=== PATIENT | male | born 2005 | race Caucasian/White ===

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

== ENCOUNTER 2024-03-15 14:43 | Emergency (ER) | payer BC, OTHER, SELFPAY ==
[2024-03-15 14:50] VITALS: BP 134/82; PULSE 100; RESP 20; TEMP 36.7; O2SAT 99
--- NOTE | 2024-03-15 14:59 | ED.GENADULT ---
HPI - General Adult General Chief complaint: Upper Respiratory Infection Stated complaint: throat/head pressure Source: patient, RN notes reviewed and old records reviewed Mode of arrival: ambulatory Limitations: no limitations History of Present Illness HPI narrative: 18-year-old male to Express Care for complaint of sinus pressure, lack of energy, sore throat, temp up to 99.8 for 2 days. Patient has attempted to treat at home with DayQuil and NyQuil without relief. Patient denies allergies, ear pain, cough, headache, GI symptoms. Patient able to tolerate fluids by mouth. Related Data Home Medications Medication Instructions Recorded Confirmed clonidine HCl 0.1 mg tablet 0.1 mg PO DAILY 03/15/24 03/15/24 clonidine HCl 0.2 mg tablet 0.2 mg PO DAILY 03/15/24 03/15/24 methylphenidate HCl 54 mg 54 mg PO DAILY 03/15/24 03/15/24 tablet,extended release 24 hr sertraline 100 mg tablet 100 mg PO DAILY 03/15/24 03/15/24 Allergies Allergy/AdvReac Type Severity Reaction Status Date / Time No Known Allergies Allergy Verified 03/15/24 15:05 Review of Systems Review of Systems: All systems reviewed & are unremarkable except as noted in HPI and below Constitutional: Constitutional: Reports as per HPI, Reports fatigue and Reports fever(s) Eyes: Eyes: Reports no additional eye complaints ENT: Reports as per HPI, Reports sinus pressure and Reports sore throat Cardiovascular: Cardiovascular: Reports no additional cardiovascular complaints, Denies chest pain and Denies dyspnea Respiratory: Respiratory: Reports no additional respiratory complaints, Denies cough and Denies dyspnea Musculoskeletal: Musculoskeletal: Reports no additional musculoskeletal complaints Neurologic: Reports system reviewed and no additional complaints, except as documented Psychiatric: Psychiatric: Reports no additional psychiatric complaints PMFSH Comments At the time of my signature, I reviewed and agree with the nursing past medical, surgical, social, and family history. There is no relevant family history pertinent to the patient complaint. Exam Const: General: cooperative, no acute distress, alert, tired appearing, uncomfortable, well groomed and well nourished Nutritional Appearance: well nourished Orientation/consciousness: patient oriented x3 Limitations: no limitations HENMT: Head: normal to inspection Ears: external ears normal Face/Nose/Sinus: Normal external nose present, Normal nares present, normal facial exam, No erythema and No edema Face and sinus: normal facial exam, no erythema and no edema Mouth: Yes Normal oral and palatal mucosa present Throat: abnormal tonsil bilateral erythema and hypertrophy 2+ and posterior oropharynx abnormal erythema and exudates Eyes: General: appearance normal, both eyes and all related structures Neck: Neck: normal visual inspection, full ROM and no meningeal signs Lymphatic: no lymphadenopathy noted and no lymphedema noted Chest: Chest palpation & inspection: normal inspection of the chest Resp: Effort & Inspection: normal respiratory effort and able to speak in complete sentences Auscultation: clear to auscultation bilaterally Cardio: Jugular venous distension: no JVD Rate: regular rate Rhythm: regular rhythm Back/Spine/Pelvis: Cervical Spine: cervical ROM normal Skin: General skin exam: normal color, no rashes or lesions noted and turgor normal Neuro: General: patient oriented x3, gait normal, moves all extremities and no meningeal signs Speech: normal speech Gait exam (Neuro): Normal gait present Extrem: General: normal to inspection, full ROM and capillary refill normal Psych: Appearance: grossly normal and well kempt Course Course Emergency Course: Some parts of this dictation were generated by voice recognition software and may contain typographical and/or grammatical inaccuracies. Level of Care: Express Care Visit Vital Signs Vital signs: Vital Signs [place]
== END 2024-03-15 15:10 | disposition home or self-care (01) ==
PROVIDERS: Emergency Provider Nurse Practitioner Family
DX: J02.0 Streptococcal pharyngitis (principal); F90.9 Attention-deficit hyperactivity disorder, unspecified type; F41.9 Anxiety disorder, unspecified; F32.A Depression, unspecified
CPT/HCPCS: 87880; 99203; G0463

== ENCOUNTER 2025-01-21 11:46 | Emergency (ER) | payer OTHER, SELFPAY ==
--- OUTSIDE RECORDS SUMMARY | 2025-01-21 11:48 | XMS_ITS ---
Author Organization [email or web address] Address [address] [place] [address] Care Team Providers Care Internet Sales Consultant Name Role Phone Negro Pizano Unavailable Unavailable REASON FOR VISIT 8 a ING Hourly Team Members PEP [place], * Snowden Pre Emp NO DRUG SCREEN, * Snowden Pre-Employment Procedures Procedure Date Ordered Date Performed Result Body Sit e Vision Screening 08/16/2024 N/A Hearing Screening 08/16/2024 N/A BTE 08/16/2024 N/A Encounters Encounter Location Date Provider Diagnosis [email or web address] [address] [place] [address] 08/16/2024 Negro Pizano Pre-employment healt h screening examination Z02.1 Assessments Encounter Date Diagnosis (ICD Code) Assessment Notes Treatment Notes Treatment Clinical Notes Section Notes 08/16/2024 Pre-employment health screening examination (ICD-10 - Z02.1) Plan Of Treatment Pending Test Test Name Order Date Urinalysis, Routine 08/16/2024 Vision Screening 08/16/2024 Hearing Screening 08/16/2024 BTE 08/16/2024 Progress Notes * Jose Elias DAWSON DDOB: [birth year] (19 yo M)Acc No.[id number]:08/16/2024 Patient: Freda Jose Elias PORRAS Provider: Cleveland Pizano PA-C :2005 A ge:18 Y S ex:Male Date:08/16/2024 Address:[address] [place], [place] [id number] Subjective: * Chief Complaints: * 1 . 8 a ING Hourly Team Members [place]P [place]. 2. * [place] Pre Emp NO DRUG SCREEN. 3. * Snowden Pre-Employment. * HPI: A DDITIONAL COMPLAINTS: Patient presents for pre-employment physical evaluation. Medical history forms and any accompanying health records are reviewed with the patients. * Medical History: Objective: * Vitals: Assessment: * Assessment: 1. P re-employment health screening examination - Z02.1 Plan: * Treatment: * Labs: * L ab: Urinalysis, Routine * Procedure Orders: * P rocedure: Vision Screening P rocedure: Hearing Screening P rocedure: BTE * Procedure Codes: P HYSI Physical Exam, BTE Physical Demands Test, HEARS HEARING SCREEN, VISIS VISION SCREEN, 94026 URINALYSIS, AUTO, W/O SCOPE, Modifiers: QW * Billing Information: * Visit Code: * Procedure Codes: PHYSI Physical Exam. BTE Physical Demands Test. HEARS HEARING SCREEN. VISIS VISION SCREEN. 19327 URINALYSIS, AUTO, W/O SCOPE. Modifiers: QW * Electronic signature of TONY Braden on 01/21/2025 at 11:48 AM CDT Sign off status: Pending * Provider: Cleveland Pizano PA-C Date: 1 Generated for Broderick olivares/Carla/eTransmitting on: 0 01/21/2025 11:48 AM CDT History and Physical Notes * HPI (History of Present Illness) Category Sub-Category Detail Notes Category Not es ADDITIONAL COMPLAINTS Patien t presents for pre-employment physical evaluation. Medical history forms and any accompanying health records are reviewed with the patients.
--- OUTSIDE RECORDS SUMMARY | 2025-01-21 11:48 | XMS_ITS | Patient Health Record ---
Author Organization [facility] Address [address] [place] [address] Care Team Providers Care Hr Specialist Name Role Phone Negro Pizano Unavailable Unavailable Reason For Referral No Information Procedures Procedure Date Ordered Date Performed Result Body Sit e BTE 08/16/2024 N/A Hearing Screening 08/16/2024 N/A Vision Screening 08/16/2024 N/A Encounters Encounter Location Date Provider Diagnosis [facility] [address] [id number] 08/16/2024 Negro Pizano Pre-employment healt h screening examination Z02.1 Assessments Encounter Date Diagnosis (ICD Code) Assessment Notes Treatment Notes Treatment Clinical Notes Section Notes 08/16/2024 Pre-employment health screening examination (ICD-10 - Z02.1) Plan Of Treatment Pending Test Test Name Order Date Urinalysis, Routine 08/16/2024 Vision Screening 08/16/2024 Hearing Screening 08/16/2024 BTE 08/16/2024 Insurance Providers Payer Name Payer Address Payer Phone Subscriber Number Group Number Insured Name Patient Relationship to Insured Coverage Start Date Coverage End Date [facility] Sarah/Savita Jose Elias Kat Self - patient is the insured
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
--- OUTSIDE RECORDS SUMMARY | 2025-01-21 11:48 | XMS_ITS | Referral Summary ---
Author Organization [facility] Virtual Care Address [facility] [place] [address] Phone Care Team Providers Care Qualifications Examiner Name Role Phone Kerri Byrd NP Primary Care Provider [phone] Sophie Stein NP Unavailable [phone] Allergies Active Allergy Reactions Criticality Noted [...] hit his head that's why he is [facility] [place] Full custody is [facility]. 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 Gender Identity Not on file Sexual Orientation Not on file Occupation Industry Job Start Date Job End Date Student Not on file Not on file Not on file Last Filed Vital Signs Vital Sign Reading [...] 02/11/2023 3:57 PM CDT Plan of Treatment Not on file Procedures Procedure Name Priority Date/Time Associated Diagnosis Comments HEPATITIS PANEL, ACUTE Routine 02/13/2023 4:04 PM CDT Need for hepatitis B screening test from Last 3 Months or Most Recently Relevant to Health Maintenance Results * Hepatitis panel, acute (02/13/2023 4:04 PM CDT) Hep A IgM Nonreactive Nonreactive MATT Comment: Interpretive Data: If Hep A IgM Ab is reported as Equivocal, a new sample should be drawn in two weeks for testing. Current interpretive data was last revised on 20. Hep B core IgM Nonreactive Nonreactive MATT Comment: Interpretive Data If HepB Core IgM Ab is reported as Equivocal, a new sample should be drawn in two weeks for testing. Current interpretive data was last revised on 20. Hep C Ab Nonreactive Nonreactive MATT Comment: Interpretive Data Nonreactive: Antibodies to HCV [...] last revised on 2020. HepBsAg Nonreactive Nonreactive MATT Blood 02/13/2023 4:04 PM CDT 02/13/2023 6:24 PM CDT us Kerri Byrd NP LAB MICROBIOLOGY - GENERAL ORDER DAGO Final Result MATT [id number] Department [place] [address] from Last 3 Months or Most Recently Relevant to Health Maintenance Insurance [address] [address] Member Subscriber Plan / Payer (Ef fective 2019-Present) Name:Pankaj Dawson Relation to Subscriber:Other Relationship Name:EBONY DAWSON Date of :1983 (Home) Address: [address] [place] [address] Payer ID:[id number] (NAIC) Type:[facility] Address: [address] IDPA ANTHEM ACCESS BLUE ACCESS OOS IDPA IDPA IDPA IDPA Advance Directives For more information, please contact: [phone] * Full Code (Latest Code Status on File) Date Activated Date Inactivated Comments 11/24/2019 10:07 PM 11/29/2019 10:49 PM * Full Code Date Activated Date Inactivated Comments 11/24/2019 1:02 PM 11/24/2019 10:07 PM Care Teams Qualifications Examiner Relationship Specialty Start Date End Date Kerri Byrd NP [address] [facility] [address] [place] [address] PCP - General Family Medicine 02/11/23 Sophie Stein NP [address] [place] [address] [place] [address] Nurse Practitioner Psychiatry 02/11/23
--- OUTSIDE RECORDS SUMMARY | 2025-01-21 11:48 | XMS_ITS | Clinical Summary ---
Author Organization [facility] Address [address] [place] [address] Phone Care Team Providers Care Molding Manager Name Role Phone Provider, None Primary Care Provider Unavailabl e Allergies Active Allergy Reactions Criticality Noted Date Comments Risperidone Hallucinations 06/13/2019 Medications guanFACINE (TENEX) 1 MG Tablet Take 1 mg by mouth nightly. Active ARIPiprazole (ABILIFY) 10 MG Tablet Take 10 mg by mouth daily. Active divalproex (DEPAKOTE) 500 MG Tablet Delayed ResponseIndicat ions:Childhood Absence Epilepsy,takes 500mg tablets x 2 BID Take 100 mg by mouth 2 times daily. Indications: [place] Epilepsy, takes 500mg tablets x 2 BID Active topiramate (TOPAMAX) 25 MG TabletIndicatio ns:foster mom unclear on dose Take 25 mg by mouth 2 times daily. Indications: foster mom unclear on dose Active diclofenac (VOLTAREN) 50 MG Tablet Delayed Response Take 1 Tab by mouth 2 times daily. 60 Tab 06/27/2019 Active Active Problems No known active problems Family History Medical History Relation Name Comments Seizures Father No Known Problems Mother Relation Name Status Comments Father Alive Mother Alive Social History Tobacco Use Types Packs/Day Years Used Date Smoking Tobacco: Never Smokeless Tobacco: Never Alcohol Use Standard Drinks/Week Comments Never 0 (1 standard drink = 0.6 oz pur e alcohol) AUDIT-C Answer Date Recorded Frequency of Alcohol Consumption Never 06/13/2019 Average Number of Drinks Not on file 019 Frequency of Binge Drinking Not on file 06/02 Sex and Gender Information Value Date Recorded Sex Assigned at Not on file Legal Sex Male 10:54 AM CDT Gender Identity Not on file Sexual Orientation Not on file Last Filed Vital Signs Vital Sign Reading Time Taken Comments Blood Pressure 139/74 06/27/2019 11:02 AM CDT Pulse 57 06/27/2019 1:48 PM CDT Temperature 35.9 C (96.7 F) 06/27/2019 11:02 AM CDT Respiratory Rate 16 06/27/2019 1:48 PM CDT Oxygen Saturation 98% 06/27/2019 1:48 PM CDT Inhaled Oxygen Concentration - - Weight 91.4 kg (201 lb 8 oz) 06/27/2019 11:02 AM CDT Height 180.3 cm (5' 11 ) 06/27/2019 11:02 AM CDT Body Mass Index 28.1 06/27/2019 11:02 AM CDT Plan of Treatment Health Maintenance Due Date Last Done Comments Hepatitis C Virus (HCV) Screening 2004 Meningococcal B Immunization (1 of 2 - Standard) 2020 Influenza Immunization (#1) 07/03/202405/2017, 12/21/2006, 09/15/2006 SARS-COV-2 Immunization ( season) 2024 03/12/2021, 02/19/2021 Respiratory Syncytial Virus (RSV) Immunization (Adult) (1 - 1-dose 75+ series) 2079 Hepatitis B Immunization Completed 005, 04/25/2005, 02/20/2005, Additional history exists Pneumococcal Immunization Combined Aged Out 05/06/2006, 06/23/2005, 04/25/2005, Additional history exists No longer eligible based on patient's age to complete this topic Hepatitis A Immunization Discontinued 12/20/2007, 12/03 Measles Mumps Rubella (MMR) Immunization Discontinued 07/31/2010, 05/06/2006 Polio (IPV) Immunization Discontinued 010, 06/23/2005, 04/25/2005, Additional history exists Varicella Immunization Discontinued 07/31/2010, 2005 DTaP/Tdap/Td Immunization Discontinued 2015, 07/31/2010, 09/15/2006, Additional history exists Meningococcal Immunization (ACWY) Aged Out 04/22/2016 No longer eligible based on patient's age to complete this topic TdaP Immunization Completed 04/22/2016 Human Papillomavirus (HPV) Immunization Completed 07/09/2017, 04/22/2016 Rotavirus Immunization Aged Out No lo nger eligible based on patient's age to complete this topic Insurance [place] Care Teams Molding Manager Relationship Specialty Start Date End Date Provider, None [place] PCP - General 06/13/19
--- OUTSIDE RECORDS SUMMARY | 2025-01-21 11:50 | XMS_ITS | Patient Health Record ---
Author Organization [facility] Address [address] [address] Care Team Providers Care Certified Driver Examiner Name Role Phone NicNehemiah Primary Care Provider [phone] Allergies Allergen (clinical drug ingredient) Drug/Non Drug Allergy documented on EMR Reaction Allergy Type Onset Date Status risperidone Risperdal hallunations Drug Allergy Ac tive Reason For Referral No Information Medications Medication SIG (Take, Route, Frequency, Duration) Notes Start Date End Date Status ARIPiprazole 10 MG 1 tablet Orally At bedtime for 30 days 02/02/2018 Active guanFACINE HCl 1 mg 1 tablet at 1600 Orally Once a day for 30 days 12/11/2017 Active ZyrTEC Allergy 10 MG 1 tablet Orally Daily Active Depakote 500 mg 2 Tablet Orally twic e daily for days Active Zofran 4 MG 1 - 2 tablets Orally every 8 hours, prn for N/V for 5 days 10/20/2018 Active Melatonin 3 MG 1 tablet at bedtime as needed with food Orally Once a day for 30 day(s) Active Depakote ER 500 mg Take 2 tablet in the am and 2 tablets in the pm Orally twice daily 1500 mg QD Not-Taking Immunizations Vaccine Route Administration Date Status Comme nts VFC Boostrix Unknown 04/22/2016 Administered VFC Daptacel Unknown 09/15/2006 Administered VFC Engerix B-Peds Unknown 2004 Administered VFC Fluarix Quad Unknown 09/15/2006 Administered VFC Fluarix Quad Unknown 12/21/2006 Administered VFC Fluarix Quad Unknown 07/09/2017 Administered VFC Gardasil Unknown 04/22/2016 Administered VFC Gardasil Unknown 07/09/2017 Administered VFC Havrix-Peds Unknown 12/21/2006 Administered VFC Havrix-Peds Unknown 12/20/2007 Administered VFC Kinrix Unknown 07/31/2010 Administered VFC Menactra Unknown 04/22/2016 Administered VFC MMR II Unknown 05/06/2006 Administered VFC MMR II Unknown 07/31/2010 Administered VFC Pediarix Unknown 02/20/2005 Administered VFC Pediarix Unknown 04/25/2005 Administered VFC Pediarix Unknown 06/23/2005 Administered VFC Varivax Unknown 12/24/2005 Administered VFC Varivax Unknown 07/31/2010 Administered X Hiberix Unknown 02/20/2005 Administered X Hiberix Unknown 04/25/2005 Administered X Hiberix Unknown 06/23/2005 Administered X Hiberix Unknown 09/15/2006 Administered X Prevnar 7 Unknown 02/20/2005 Administered X Prevnar 7 Unknown 04/25/2005 Administered X Prevnar 7 Unknown 06/23/2005 Administered X Prevnar 7 Unknown 05/06/2006 Administered Social History Tobacco Use: Social History Observation Description Date Details (start date - stop date) Never Smoker NA - NA Tobacco Use/Smoking Question Answer Notes Are you a nonsmoker Alcohol Screen (Audit-C) Question Answer Notes Did you have a drink containing alcohol in the p ast year? No Points 0 Interpretation Negative DAST Question Answer Notes Total Score: 0 Interpretation: No problems reported Section Notes: lives with grandparents lives with grandparents lives with grandparents lives with grandparents lives with grandparents lives with grandparents lives with grandparents lives with grandparents lives with grandparents lives with grandparents lives with grandparents lives with grandparents lives with grandparents Problems Problem Type SNOMED Code ICD Code Onset Dates Problem Status W/U Status Risk Notes Problem Insomnia (206871725) Insomnia (G47.00) Active confirmed Problem Mood disorder (64196484) Mood disorder (F39) Active confirmed Problem 622540908 History of mood disorder (Z86.59) Active confirmed Plan Of Treatment No Information Insurance Providers Payer Name Payer Address Payer Phone Subscriber Number Group Number Insured Name Patient Relationship to Insured Coverage Start Date Coverage End Date Shelly Howell [facility] [address] [address] [place] [address] [id number] Jose Elias Kat Self - patient is the insured 8 [employer] [place] P[place] [address] [place] [address] [id number] Stalin Kat Child - Insured does not have Financial Responsibility (includes legally adopted child) 8 [place] [employer] FQ [address] [address] [place] [address] [id number] Jose Elias Kat Self - patient is the insured 8 [employer] [place] FFS [address] [address] [place] [address] [id number] Jose Elias Kat Self - patient is the insured 8 [place] Nonbillable [address] [address] [place] [address] [id number] Jose Elias Kat Self - patient is the insured 8 Medical (General) History Medical History History ICD Code Epilepsy Surgical History Surgery Date(Month/Year) circumcision 12/2004 Hospitalization History Reason Date(Month/Year) [facility] 21 days 05/2017 [facility]
[2025-01-21 11:57] VITALS: BP 149/84; PULSE 61; RESP 16; TEMP 36.5; O2SAT 97
--- NOTE | 2025-01-21 13:12 | ED.GENADULT ---
HPI - General Adult General Chief complaint: Nausea/Vomiting/Diarrhea Stated complaint: diarrhea/nausea/trouble breathing Source: patient Mode of arrival: ambulatory Limitations: no limitations History of Present Illness HPI narrative: Patient presents for evaluation of GI symptoms. Symptom onset this morning. He was at work at the time of symptom onset. He developed nausea and diarrhea. He has some right-sided abdominal discomfort that he states was initially 7/10 but is now 5/10 in severity. Fever or chills. He had some shortness of breath while working when exposed to some wheat, but left and his symptoms improved. No recent ETOH consumption. No new foods. No recent sick contacts. Related Data Allergies Allergy/AdvReac Type Severity Reaction Status Date / Time No Known Allergies Allergy Verified 03/15/24 15:05 Review of Systems Review of Systems: CONSTITUTIONAL: Denies fever, chills, or sweats. EYES: Denies visual changes, redness, or discharge. ENT: Denies rhinorrhea, congestion, sore throat, or otalgia. CARDIOVASCULAR: Denies chest pain, palpitations, or edema. RESPIRATORY: Denies cough or dyspnea. GASTROINTESTINAL: Reports right-sided abdominal pain, nausea and diarrhea. Denies vomiting GENITOURINARY: Denies dysuria or hematuria. SKIN: Denies rash or itching. MUSCULOSKELETAL: Denies back pain, joint pain, or myalgia. NEUROLOGIC: Denies headache, numbness, dizziness, or weakness. PSYCHIATRIC: Denies anxiety or depression. PMFSH Past Medical History Medical History No pertinent past medical history Surgical History Surgical History No pertinent past surgical history Family History Family History Mother Family history non-contributory Social History Social History Additional occupation/education comments: works on a [employer] Gender identity (if verbalized by the patient): Male Spiritual care concerns: No Exam Narrative: GENERAL: Well-appearing, well-nourished, and in no acute distress. HEAD: Normocephalic, atraumatic. EYES: PERRLA and EOMI. ENT: Nares clear, no rhinorrhea or epistaxis. Mucous membranes moist. Oropharynx without tonsillar hypertrophy exudate or other lesions. Bilateral TMs pearly ovalle nonbulging NECK: Supple. No adenopathy or masses. No carotid bruits or JVD CHEST: Clear to auscultation. No respiratory distress. No wheezes rales or rhonchi HEART: Regular rate and rhythm. No murmur heard. Normal peripheral pulses. ABDOMEN: Soft, nondistended, normal active bowel sounds. There is mild tenderness in the right side of the abdomen without rebound or guarding EXTREMITIES: Normal range of motion. No edema. SKIN: Warm, dry, no rash. NEURO: No focal deficits. Alert and oriented x3. PSYCH: Normal mood and affect. Course Course Emergency Course: This is a 19-year-old male who presented for evaluation of GI symptoms. He has mild right-sided abdominal tenderness. COVID and flu negative. I recommended he be transferred to the ER for further workup. He declined. He would like to go home and monitor his symptoms. He does appear quite well clinically. Will dc with zofran. Advised to take Imodium for diarrhea. Increase fluid intake. Follow-up with primary provider. Go to the ER for worsening symptoms. Patient in agreement with plan of care. Level of Care: Express Care Visit Vital Signs Vital signs: Vital Signs Temperature 36.5 C 01/21/25 11:57 Pulse Rate 61 01/21/25 11:57 Respiratory Rate 16 01/21/25 11:57 Blood Pressure 149/84 H 01/21/25 11:57 Pulse Oximetry 97 01/21/25 11:57 Oxygen Delivery Room Air 01/21/25 11:57 Temperature 36.5 C 01/21/25 11:57 Pulse Rate 61 01/21/25 11:57 Respiratory Rate 16 01/21/25 11:57 Blood Pressure 149/84 H 01/21/25 11:57 Pulse Oximetry 97 01/21/25 11:57 Oxygen Delivery Room Air 01/21/25 11:57 Medical Decision Making Vital Signs Vital Signs: Vital Signs Temperature 36.5 C 01/21/25 11:57 Pulse Rate 61 01/21/25 11:57 Respiratory Rate 16 01/21/25 11:57 Blood Pressure 149/84 H 01/21/25 11:57 Pulse Oximetry 97 01/21/25 11:57 Oxygen Delivery Room Air 01/21/25 11:57 Temperature 36.5 C 01/21/25 11:57 Pulse Rate 61 01/21/25 11:57 Respiratory Rate 16 01/21/25 11:57 Blood Pressure 149/84 H 01/21/25 11:57 Pulse Oximetry 97 01/21/25 11:57 Oxygen Delivery Room Air 01/21/25 11:57 Lab Data Labs: Lab Results 01/21/25 Range/Units 12:56 POC Influenza A Ag Negative (Negative) POC Influenza B Ag Negative (Negative) POC SARS CoV-2 Ag Negative (Negative) Discharge Plan Discharge Clinical Impression: Nausea, Diarrhea Patient Disposition: Home, Self-Care Condition: Stable Instructions: Antibiotic Form, Acute Nausea and Vomiting (DC), Acute Diarrhea (ED) Additional Instructions: IMODIUM SHOULD HELP WITH DIARRHEA MAKE SURE TO STAY WELL HYDRATED Patient Language: Mongolian Prescriptions: New ondansetron 4 mg tablet,disintegrating 4 mg PO Q8H PRN (Reason: nausea and vomiting) Qty: 15 0RF Follow-up/Referrals: Wu Sidhu MD [Physician] - Stand Alone Forms: Work/School Release IP Time of Disposition: 13:16
[2025-01-21 13:15] LABS: EDCOVIDSCREEN Negative (Negative); EDINFLUASCREEN Negative (Negative); EDINFLUBSCREEN Negative (Negative)
== END 2025-01-21 13:23 | disposition home or self-care (01) ==
PROVIDERS: Emergency Provider Nurse Practitioner
DX: R11.0 Nausea (principal); R19.7 Diarrhea, unspecified; Z20.822 Contact with and (suspected) exposure to COVID-19
CPT/HCPCS: 87426; 87804; 99213; G0463